=== PATIENT | male | born 1955 | race Caucasian/White ===

== ENCOUNTER 2018-11-23 00:44 | Inpatient (IN) | payer BC ==
[2018-11-22 14:33] LABS: INR 0.93
--- NOTE | 2018-11-22 15:18 | RADIOLOGY IMAGING REPORT ---
FACILITY: [facility] PATIENT NAME: Aiden Mai : 1955 MR: [id number] V: [id number] EXAM DATE: ORDERING PHYSICIAN: DAMION RM TECHNOLOGIST: Location: [facility] [place] Patient: Aiden Mai : 1955 Visit/Account:[id number] Date of Sevice: 11/22/2018 EXAMINATION: Likely series 11/22/2018 2:10 PM HISTORY: Left TKA. Preop for right TKA. COMPARISON: None FINDINGS: Indwelling left TKA with an unremarkable appearance. Measurements are as follows: Right leg: Top of femoral head to the tibial plafond 86.3 cm. Top of femoral head to medial femoral condyle 49.0 cm Medial tibial plateau to the tibial plafond 37.1 cm Left leg: Top of femoral head to tibial plafond and 86.8 cm. Top of femoral head to medial prosthetic condyle 49.1 cm Prosthetic medial tibial plateau to tibial plafond 37.4 cm No acute bony finding is evident. There is severe medial femorotibial joint space loss within the ri ght knee. IMPRESSION: Limb length study with measurements as above. Report Dictated By: Víctor Flores MD at 11/22/2018 3:01 PM Report E-Signed By: Víctor Flores MD at 11/22/2018 3:14 PM WSN:[email or web address]
[2018-11-23] VITALS (10 sets, daily range): BP systolic 108–149; BP diastolic 66–98
[~2018-11-23] VITALS: Ht 177.8 cm; Wt 103.4 kg
[~2018-11-23 00:44] MED LIST: ALL300 PO; ASPIRIN 325 MG PO; ATR80PT PO; CEP500 PO; CYAN50TA3 PO; ENOX80DI SQ; ENOX80DI8 SQ; HYDR473S9; LOR5/325 PO; MULT1CAP59 PO; OXY10 PO; PER PO; ZOL5 PO; ZOLP-350 PO; [UNRECOGNIZED DRUG - CODE] PO
[2018-11-23] MEDS ORDERED: PREGABALIN 150 MG CAPSULE PO ONE (06:15)
[2018-11-23] MEDS ORDERED: CELECOXIB 200 MG CAP PO ONE (06:15)
[2018-11-23] MEDS ORDERED: LIDOCAINE/SOD BICARB 8.4% SYR ID ONE (06:15)
[2018-11-23] MEDS ORDERED: NORMOSOL R SOLN(*) 1000 ML BAG 1,000 ML IV PRN (06:15)
[2018-11-23] MEDS ORDERED: ACETAMINOPHEN 500 MG TAB PO ONE (06:15)
[2018-11-23] MEDS ORDERED: MIDAZOLAM 2 MG/2 ML VIAL IVP PRN (06:15)
[2018-11-23] MEDS ORDERED: ONDANSETRON 4 MG/2 ML VIAL ONE (06:25)
[2018-11-23] MEDS ORDERED: PROPOFOL EMUL(*) 10MG/ML 20 ML 40 ML ONE (06:25)
[2018-11-23] MEDS ORDERED: fentaNYL CITR 100 MCG/2 ML AMP ONE (06:25)
[2018-11-23] MEDS ORDERED: DEXAMETHASONE SOD 4 MG/ML VIAL ONE (06:25)
[2018-11-23] MEDS ORDERED: METOCLOPRAMIDE 10 MG/2 ML SDV ONE (06:25)
[2018-11-23] MEDS ORDERED: LIDOCAINE MPF 1% 5 ML VIAL ONE (06:25)
[2018-11-23] MEDS ORDERED: ePHEDrine 25 MG/5 ML DISP.SYR IVP ONE (07:34)
[2018-11-23] MEDS ORDERED: FAMOTIDINE 20 MG TAB PO ONE (09:10)
[2018-11-23] MEDS ORDERED: ROPIVACAINE/EPI/CLONIDINE/KET 50 ML SYRINGE INJ ONE (09:10)
[2018-11-23] MEDS ORDERED: VANCOMYCIN(*) 1 GM VIAL 1 GM, VANCOMYCIN (*) 0.5 GM VIAL 0.5 GM in NS(*) 0.9% 250 ML BA... IVPB ONE (09:10)
[2018-11-23] MEDS ORDERED: ACETAMINOPHEN 500 MG TAB PO PRN (10:05)
[2018-11-23] MEDS ORDERED: ONDANSETRON 4 MG/2 ML VIAL IVP PRN (10:05)
[2018-11-23] MEDS ORDERED: NALOXONE HCL 0.4 MG/ML VIAL IVP PRN (10:05)
[2018-11-23] MEDS ORDERED: FLUSH 10 ML SYR IVP PRN (10:05)
[2018-11-23] MEDS ORDERED: KCL/D5LR 20 MEQ/1000 ML PREMIX 1,000 ML IV PRN (10:05)
[2018-11-23] MEDS ORDERED: MAGNESIUM CITRATE 300 ML BTL PO PRN (10:05)
[2018-11-23] MEDS ORDERED: MORPHINE SULFATE 30 MG PCA IV PRN (10:05)
[2018-11-23] MEDS ORDERED: PROMETHAZINE 25 MG/ML 1 ML AMP IVP PRN (10:05)
--- NOTE | 2018-11-23 11:01 | OPERATIVE REPORT 1 ---
EVENT DATE: November 23, 2018 SURGEON: Tray Garcia MD ANESTHESIOLOGIST: Shayne Bruce MD ANESTHESIA: General plus spinal. INS[employer]OR [employer]: Moisés Mack PA-C PREOPERATIVE DIAGNOSIS Right knee degenerative joint disease (DJD). POSTOPERATIVE DIAGNOSIS Right knee degenerative joint disease (DJD). PROCEDURE PERFORMED Right total knee arthroplasty (78189) ESTIMATED BLOOD LOSS Minimal (approximately 30 mL). TOURNIQUET TIME 58 minutes. SPECIMENS None. COMPLICATIONS None. IMPLANTS USED DePuy Attune 8 femur cut at 6 degrees, 7 tibia rotating platform, 5 x 8 mm PS insert and a 38 anatomic patella, all cemented. DESCRIPTION OF PROCEDURE The patient was brought into the operating room and placed on the OR table in the supine position. He was then placed in the decubitus position and his spinal was given. He was placed back in the supine position after a period of time in the right lateral decubitus position. He was then given a light general anesthetic and then his right lower extremity was prepped and draped in the usual sterile fashion. The limb was exsanguinated and the tourniquet was inflated. We did a standard anterior utilitarian incision deep into skin and subcutaneous tissue followed by a medial peripatellar approach. The fluid was clear. There was bone on bone arthritis on the medial compartment with some arthritis laterally but to a much lesser degree. We preoperatively templated him with long-plate films for a 6-degree cut so after releasing the ACL, removing the menisci and doing a medial periosteal strip we cut the patellofemoral ligament and then obtained intramedullary access for the femur. We cut 9 mm off the end and then set up for a 3-degree externally rotated femoral component. We trialed this. It looked like it was best fit for an 8 and so we made our cuts for an 8. We then went to the tibia and removed, initially planning for 2 mm off the deficient medial side but that did not quite cut 9 mm off the lateral side so we dropped it down just a bit so that it would cut 9 mm laterally including the cartilage surface so it would be a little less bone. These cuts were made and then we set up for the trial. It looked like the 8 was a little bit wide so we trialed the 7 and that seemed to fit better. Before proceeding, I removed the posterior elements of the condyle and stripped the posterior capsule. We also injected posteriorly with cocktail as well as throughout the periosteum. We then went ahead with the rest of the tibial preparation and then trialed. It seemed to fit well with a 5. The patella fit best with a 38 so the 38 trial was placed. Having done this, we removed all implants and then additionally drilled the eburnated bone while placing two bone blocks in, irrigating with Irrisept as well as saline. The final implants were then placed. We had a bit of a challenge with Mr. Mai in this regard because even though the trials had fit well, when we cemented the tibia and the femur initially it was a bit of a challenge to get the femoral component in with the trial 5 mm implanted so we temporarily removed that and placed a lap sponge between the tibia and femur to still allow for locked loaded compression of the cement and then we returned after full polymerization to place the final implant. Surprisingly, despite the fact that it was a challenge to get the femoral component in with the trial implant in place, once we placed the trial implant he actually came out to full extension quite easily. Varus and valgus stress test was stable in full extension as well as in 20 degrees of flexion. He did not have a tendency to shift in any way or spin out when doing flexion. The wound was irrigated. We did a bit more Irrisept. We let the tourniquet down after cement had polymerized, controlled bleeding with cautery and then closed with #1 Vicryl followed by 2-0 and 3-0 and then 4-0 Monocryl as well as a Dermabond strip. He was awakened and transferred to the recovery room in stable condition. MASOUD
[2018-11-23] MEDS ORDERED: LACTATED RINGER 3000 ML BAG IR ONE (11:18)
[2018-11-23] MEDS ORDERED: NS 0.9% IRRIGATION 1000ML PLCT IR ONE (11:20)
--- NOTE | 2018-11-23 12:33 | RADIOLOGY IMAGING REPORT ---
FACILITY[place] [facility] [place] PATIENT NAME: Aiden Mai : 1955 MR: [id number] V: [id number] EXAM DATE: ORDERING PHYSICIAN: DAMION RM TECHNOLOGIST: Location: Patient: Aiden Mai : 1955 Visit/Account:[id number] Date of Sevice: 11/23/2018 Exam type: KNEE LIMITED RIGHT History: S/P TOTAL KNEE ARTHROPLASTY, CHECK PLACEMENT Comparison: November 22, 2018. Findings: Two views the right knee demonstrate a right knee arthroplasty that appears in good anatomic alignmen t. Soft tissue gas projects over the anterior aspect of this postoperative knee IMPRESSION: 1. As above Report Dictated By: Kelsie Obregon MD at 11/23/2018 12:28 PM Report E-Signed By: Kelsie Obregon MD at 11/23/2018 12:29 PM WSN:[id number]
--- NOTE | 2018-11-23 12:48 | Hospitalist Consultation ---
History of Present Illness Requesting Physician Dr. Garcia Reason for Consult Medical Management of Comorbidities Chief Complaint s/p right knee replacement History of Present Illness He was admitted s/p right knee replacement. It is reported the surgery went well and without complication. History Problems: (1) Hyperlipidemia Status: Chronic (2) Gout Status: Chronic (3) Factor V Leiden Status: Chronic Home Meds Reported Medications Zolpidem Tartrate (AMBIEN) 10 Mg Tablet, 0.5 TAB PO QHS, TAB 11/15/18 [Aspirin 325mg] No Conflict Check, 325 MG PO QDAY 11/15/18 Hydrocodone/Acetaminophen (Lorcet Hd 10-325 mg Tablet) 1 Each Tablet, 5 MG PO PRN 11/15/18 Atorvastatin Calcium (Lipitor) 80 Mg Tablet, 40 MG PO QHS, 0 Refills 06/14/11 Allopurinol (Zyloprim) 300 Mg Tab, 300 MG PO QDAY, 0 Refills 06/14/11 Allergies: Coded Allergies: No Known Drug Allergies (Verified , 11/11/11) Hx Smoking: No Smoking Status: Never Smoker Caffeine Intake: Coffee Caffeine/Cups Per Day: 1 Hx Alcohol Use: Yes (2-3 max a day somedays none ) Alcohol Used: Beer Hx Substance Use Disorder: No Review of Systems All Systems Reviewed/Normal: Yes, Except as Noted Exam Vital Signs Vital Signs Date Time Temp Pulse Resp B/P (MAP) Pulse Ox O2 Delivery O2 Flow Rate FiO2 11/23/18 11:45 79 122/66 (84) 93 11/23/18 11:34 12 11/23/18 11:34 97.6 Nasal Cannula 2.0 General Appearance: Alert, Awake, No Acute Distress, Afebrile Neuro: No Gross deficits Cardiovascular: Regular Rate and Rhythm Respiratory: No Respiratory Distress, Clear to Auscultation GI: Abd Soft and Non-Tender Extremities: Warm, Perfused Psych: Alert & Oriented X3, Appropriate Mood & Affect Medical Decision Making Data Points Result Diagram: 11/23/18 1014 Assessment and Plan Problems: (1) Status post right knee replacement Status: Acute Assessment & Plan: Followed by Dr. Garcia. He will be started on Xarelto 10mg for DVT prophylaxis. 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 He will be placed on Xarelto for 35 days post-operatively for DVT prophylaxis. He is not on chronic anticoagulation treatment. (3) Hyperlipidemia Status: Chronic Assessment & Plan: Continue chronic atorvastatin. (4) Gout Status: Chronic Assessment & Plan: Continue chronic allopurinol. Venous Thromboembolism Antithrombotics Is Pt On Any Antithrombotics?: Yes Exam Sepsis Risk: No Definite Risk KARLA TOBIAS WAISTBAND SETTER Nov 23, 2018 12:48
--- NOTE | 2018-11-23 13:45 | NUR ---
Physical Therapy Impression PT eval completed. Pt notes that his feet still feel numb but is eager to transfer and attempt ambulation to the BR. Pt is fairly impulsive and moves quickly despite decreased sensation noted. Pt encouraged to be more aware of stepping pattern and not aggressively flex knee when sitting down onto toilet. Pt did indicate that with previous TKA on L) he experienced a hemarthrosis and had to have his knee drained several times before leaving the hospital. Pt is also noted to have a coagulation disorder, which is being managed in conjunction with surgeon and hospitalists. Physical Therapy Goals 1. Pt to be SBA/CGA for bed mobility and sup<>sit transfers 2. Pt to be SBA/CGA for sit to/from stand transfers 3. Pt to amb 100' with least restrictive device and no loss of balance noted with SBA/CGA 4. Pt to katja up/down 3 steps without rail using least restrictive device and SBA/CGA Patient's Goals
[2018-11-23] MEDS: APAP/HYDROCODONE 325/5 TAB PO PRN ×2 (16:09→20:41)
[2018-11-23] MEDS: RIVAROXABAN 10 MG TAB PO SCH (17:27)
[2018-11-23] MEDS: ATORVASTATIN 40 MG TAB PO SCH (20:40)
[2018-11-23] MEDS ORDERED: ALLOPURINOL 300 MG TAB PO SCH (21:00)
[2018-11-24 00:21] VITALS: BP 105/63
[2018-11-24] MEDS: APAP/HYDROCODONE 325/5 TAB PO PRN ×2 (00:49→06:10)
[2018-11-24] MEDS: diphenhydrAMINE 25 MG CAP PO PRN ×2 (00:50→23:56)
[2018-11-24 03:51] VITALS: BP 119/73
[2018-11-24 06:06] LABS: PLATELET COUNT, AUTOMATED 207 K/uL (150-450)
--- NOTE | 2018-11-24 06:44 | Hospitalist Progress Note ---
Subjective Progress Notes Subjective Having a lot of pain this morning. Otherwise doing well. Physical Exam Vital Signs Date Time Temp Pulse Resp B/P (MAP) Pulse Ox O2 Delivery O2 Flow Rate FiO2 11/24/18 03:51 98.1 70 12 119/73 (88) 96 Nasal Cannula 1.0 Intake and Output 11/24/18 07:00 Intake Total 1800 ml Output Total 625 ml Balance 1175 ml Intake Oral 400 ml IV Total 1400 ml Output Urine Total 625 ml # Voids 2 General Appearance: Alert, Awake, No Acute Distress Cardiovascular: Regular Rate and Rhythm Respiratory: Clear to Auscultation GI: Soft and Non-Tender Extremities: Warm, Perfused Result Diagram: 11/24/18 0534 Assessment and Plan Problems: (1) Status post right knee replacement Status: Acute Assessment & Plan: Followed by Dr. Garcia. He has been started on Xarelto 10mg for DVT prophylaxis. 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 He will be placed on Xarelto for 35 days post-operatively for DVT prophylaxis. He is not on chronic anticoagulation treatment. (3) Hyperlipidemia Status: Chronic Assessment & Plan: Continue chronic atorvastatin. (4) Gout Status: Chronic Assessment & Plan: Continue chronic allopurinol. Exam Sepsis Risk: No Definite Risk WILBERTO DELUNA MD Nov 24, 2018 06:44
[2018-11-24 07:39] VITALS: BP 111/68
[2018-11-24] MEDS ORDERED: HYDR-385 PO (07:39)
[2018-11-24] MEDS ORDERED: ALLOPURINOL 300 MG TAB PO SCH ×2 (09:00→21:00)
[2018-11-24] MEDS: oxyCODONE HCL 5 MG CAP PO PRN ×4 (10:03→20:50)
--- NOTE | 2018-11-24 10:14 | NUR ---
Physical Therapy Impression Pt reporting high pain in thigh this AM. Bed mobility completed with Goran, SBA for transfers and ambulation with RW x 80'. Pt with difficulty accepting weight onto R) LE with ambulation d/t pain and is not appropriate for stair training at this time. Pt reports lightheadedness at end of session and became flushed, PT assisted pt back to bed, BP WNL once back in bed. Physical Therapy Goals 1. Pt to be SBA/CGA for bed mobility and sup<>sit transfers 2. Pt to be SBA/CGA for sit to/from stand transfers 3. Pt to amb 100' with least restrictive device and no loss of balance noted with SBA/CGA 4. Pt to katja up/down 3 steps without rail using least restrictive device and SBA/CGA Patient's Goals
[2018-11-24 10:50] VITALS: BP 126/70
--- NOTE | 2018-11-24 13:08 | NUR ---
Physical Therapy Impression Pt continues to report high pain and difficulty with weightbearing through R) LE. Elsa for bed mobility and transfers wtih RW. Ambulation with RW and SBA, pt does not feel confident in ability to complete stair negotiation at this time, plan to address stairs in AM. Physical Therapy Goals 1. Pt to be SBA/CGA for bed mobility and sup<>sit transfers 2. Pt to be SBA/CGA for sit to/from stand transfers 3. Pt to amb 100' with least restrictive device and no loss of balance noted with SBA/CGA 4. Pt to katja up/down 3 steps without rail using least restrictive device and SBA/CGA Patient's Goals
[2018-11-24] MEDS: MORPHINE 2 MG/ML SYR IVP PRN ×3 (14:28→23:59)
[2018-11-24 15:00] VITALS: BP 140/77
[2018-11-24] MEDS: RIVAROXABAN 10 MG TAB PO SCH (18:44)
[2018-11-24] MEDS: ATORVASTATIN 40 MG TAB PO SCH (20:49)
--- NOTE | 2018-11-24 21:17 | RADIOLOGY IMAGING REPORT ---
FACILITY: [facility] [place] PATIENT NAME: Aiden Mai : 1955 MR: [id number] V: [id number] EXAM DATE: ORDERING PHYSICIAN: DAMION RM TECHNOLOGIST: Location: [facility] Patient: Aiden Mai : 1955 Visit/Account:[id number] Date of Sevice: 11/24/2018 VENOUS LOWER EXT RT HISTORY: DVT rule-out ADDITIONAL HISTORY: Patient status post knee replacement COMPARISON: None. FINDINGS: Grayscale, duplex and color Doppler interrogation of the right lower extremity deep veins from common femoral vein to proximal calf was completed. Common femoral vein: Negative. Femoral vein: Negative. Deep femoral vein: Negative. Popliteal vein: Negative. Visualized deep calf veins: Negative. Popliteal fossa: Within the popliteal fossa, there is a 2.7 x 1.2 x 1.4 cm fluid collection. Subjacen t to the surgical incision in the anterior knee, there is a fluid collection measuring 10.5 x 8.0 x 1 .3 cm. These findings are likely postoperative in nature. Greater saphenous vein in the proximal thigh: Negative. IMPRESSION: Negative for deep venous thrombosis within the right lower extremity Fluid collections present within the knee anteriorly and posteriorly. The patient is status post rece nt total knee replacement. These findings are likely postoperative in nature. Report Dictated By: Sigifredo Davis at 11/24/2018 9:07 PM Report E-Signed By: Sigifredo Davis at 11/24/2018 9:13 PM WSN:[id number]
[2018-11-24 23:49] VITALS: BP 132/68
[2018-11-25] MEDS: oxyCODONE HCL 5 MG CAP PO PRN ×3 (02:08→12:03)
[2018-11-25 04:19] VITALS: BP 118/77
[2018-11-25 05:56] LABS: PLATELET COUNT, AUTOMATED 195 K/uL (150-450)
--- NOTE | 2018-11-25 08:39 | Hospitalist Progress Note ---
Subjective Progress Notes Subjective He has had persistent right thigh pain. No weakness. Some chronic great toe numbness (following surgery for lumbar disc disease). Physical Exam Vital Signs Date Time Temp Pulse Resp B/P (MAP) Pulse Ox O2 Delivery O2 Flow Rate FiO2 11/25/18 04:19 98.8 75 12 118/77 (91) 95 Nasal Cannula 1.0 Intake and Output 11/25/18 07:00 Intake Total 1520 ml Output Total 725 ml Balance 795 ml Intake Oral 1520 ml Output Urine Total 725 ml # Voids 3 General Appearance: Alert, Awake Cardiovascular: Regular Rate and Rhythm Respiratory: Clear to Auscultation Musculoskeletal: Other (right thigh with moderate swelling/tenderness/no obvious ecchymoses in mid-thigh some around knee) Extremities: Pulses (DP normal) Result Diagram: 11/25/1852111/25/18521 Assessment and Plan Problems: (1) Status post right knee replacement Status: Acute Assessment & Plan: Followed by Dr. Garcia. Ultrasound venogram negative for DVT. He is on Xarelto 10mg daily for DVT prophylaxis. Question if tourniquet-related pain/injury. 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 He is on Xarelto for 35 days post-operatively for DVT prophylaxis. He has not been on chronic anticoagulation treatment, other than aspirin, prior to surgery. (3) Hyperlipidemia Status: Chronic Assessment & Plan: Continue chronic atorvastatin. (4) Gout Status: Chronic Assessment & Plan: Continue chronic allopurinol. Exam Sepsis Risk: No Definite Risk RASHAWN DELUNA MD Nov 25, 2018 08:39
--- NOTE | 2018-11-25 08:53 | NUR ---
Physical Therapy Impression PT instructed pt in stair negotiation with bilateral axillary crutches, pt with good tolerance to ascent, but with difficulty accepting weight on R) LE with descent, this improved with repetition. The pt is safe to d/c home from a mobilit stand point when medically appropriate. Rec use of RW for mobility and crutches for stair negotiation. SPO2 85% on room air, WNL on 1L O2. He will f/u with OP PT services. Physical Therapy Goals 1. Pt to be SBA/CGA for bed mobility and sup<>sit transfers 2. Pt to be SBA/CGA for sit to/from stand transfers 3. Pt to amb 100' with least restrictive device and no loss of balance noted with SBA/CGA 4. Pt to katja up/down 3 steps without rail using least restrictive device and SBA/CGA Patient's Goals
[2018-11-25] MEDS ORDERED: RIVA10TA PO (11:20)
== END 2018-11-25 12:20 | disposition home or self-care (01) | DRG 470 ==
LOC: OR 00:44 → MED 11:25
PROVIDERS: ADMIT Orthopaedic Surgery Hand Surgery; ATTEND Orthopaedic Surgery Hand Surgery
PROC: 0SRC0J9 Replacement of Right Knee Joint with Synthetic Substitute, Cemented, Open Approach (ICD-10-PCS; principal; 2018-11-23 07:12)
DX: M17.11 Unilateral primary osteoarthritis, right knee (principal); D68.51 Activated protein C resistance; K21.9 Gastro-esophageal reflux disease without esophagitis; G47.33 Obstructive sleep apnea (adult) (pediatric); M1A.9XX0 Chronic gout, unspecified, without tophus (tophi); E78.5 Hyperlipidemia, unspecified; Z96.652 Presence of left artificial knee joint
CPT/HCPCS: 36415; 77073; 82310; 82374; 82435; 82565; 82947; 84132; 84295; 84520; 85014; 85018; 85025; 85610; 86850; 86900; 86901; 97161; C1713; C1776; J1100; J2001; J2250; J2270; J2405; J2704; J2765; J3010; J3370; J7050; Q0163